=== PATIENT | female | born 1945 | race Caucasian/White ===

== ENCOUNTER 2017-03-30 15:53 | Inpatient (IN) | payer BC, OTHER ==
[~2017-03-30] VITALS: Ht 152.4 cm; Wt 78.0 kg
[~2017-03-30 15:53] MED LIST: ASPCH81 PO; CHOL100010 PO; CLC100X PO; CLTP PO; CO Q10 PO; DHEA PO; DULO60CA44 PO; GARC1TAB PO; GINSING PO; OMEG10007 PO; PRN10125 PO; ROPI2TAB6 PO; SYN200 PO; TRAZ100T29 PO; VITAMIN B PLUS PO; VITAMIN C PO; WELLBUTRIN PO; [UNRECOGNIZED DRUG - CODE] TOP; [UNRECOGNIZED DRUG - OTHER] PO; [UNRECOGNIZED DRUG - OTHER] PO; garlic PO; tumeric PO
[2017-03-30] MEDS ORDERED: SODIUM CHLORIDE 0.9% 1000ML 1,000 ML IV SCH ×2 (16:08→21:15)
--- NOTE | 2017-03-30 16:24 | DIAGNOSTIC IMAGING REPORT ---
CT OF THE HEAD WITHOUT CONTRAST CLINICAL HISTORY: Stroke alert. Left-sided numbness and weakness. COMPARISON STUDY: MRI of the brain October 08, 2014. CT DOSE: 614.27 mGy.cm TECHNIQUE: Helical axial images of the head were obtained without IV contrast. Automated exposure control was utilized for the study. FINDINGS: No acute intracranial hemorrhage, midline shift or mass effect is present. Ventricular system is normal. Basilar cisterns are patent. There are no extra-axial collections. Mild white matter hypodensity suggests small vessel disease. There are no findings to suggest acute dural sinus thrombosis or acute territorial infarct. Visualized portions of the sinuses and mastoid air cells are clear. There are no calvarial abnormalities. IMPRESSION: No acute intracranial findings. Electronically signed by: Daniel Jessica M.D. 03/30/2017 4:23 PM Dictated Date/Time: 03/30/2017 4:19 PM
--- NOTE | 2017-03-30 16:34 | DIAGNOSTIC IMAGING REPORT ---
CHEST ONE VIEW PORTABLE HISTORY: Stroke symptoms. COMPARISON: Chest 02/10/2014. FINDINGS: The heart remains borderline enlarged. No focal lung consolidations. Question of a small nodular density within the right midlung zone. No pleural effusions. No pneumothorax. Cervical spinal fusion hardware. IMPRESSION: 1. No acute process within the chest. 2. Question small nodular density within the right midlung zone is likely due to the overlapping pulmonary vessels and ribs. However, dedicated nonemergent PA and lateral views the chest are recommended for confirmation. Electronically signed by: Ad Dillard M.D. 03/30/2017 4:33 PM Dictated Date/Time: 03/30/2017 4:32 PM
[2017-03-30 16:48] LABS: BASO % 0.3 %; BASO ABS # 0.02 K/uL (0-0.2); COMPLETE YES; EOS % 0.8 %; HEMATOCRIT 37.7 % (37-47); IG% 0.3 %; LYMPH % 27.9 %; LYMPH ABS # 1.75 K/uL (1.2-3.4); MEAN CELL VOLUME 88.1 fL (80-100); MEAN CORPUSCULAR HEMOGLOBIN 30.8 pg (25-34); MEAN PLATELET VOLUME 9.1 fL (7.4-10.4); MONO % 7.8 %; NEUT % 62.9 %; PLATELET COUNT 239 K/uL (130-400); RED BLOOD COUNT 4.28 M/uL (4.2-5.4); WHITE BLOOD COUNT 6.27 K/uL (4.8-10.8)
[2017-03-30 16:57] LABS: INR 0.9 (0.9-1.1)
[2017-03-30 17:05] LABS: BLOOD UREA NITROGEN 15 mg/dl (7-18); BUN/CREATININE RATIO 23.1 (10-20); CALCIUM 9.2 mg/dl (8.5-10.1); CARBON DIOXIDE 30 mmol/L (21-32); CHLORIDE 104 mmol/L (98-107); CREATININE 0.65 mg/dl (0.60-1.20); GLUCOSE 93 mg/dl (70-99); POTASSIUM 3.9 mmol/L (3.5-5.1); SODIUM 140 mmol/L (136-145)
[2017-03-30 17:09] LABS: CKMB/CK RATIO 1.4 (0-3.0)
[2017-03-30] MEDS ORDERED: MISCTAB26 PO (17:42)
[2017-03-30] MEDS ORDERED: MILK140C PO (17:42)
[2017-03-30] MEDS ORDERED: OXYC-106 PO (17:42)
[2017-03-30] MEDS ORDERED: TUMERIC PO (17:42)
[2017-03-30] MEDS ORDERED: LSN/10125 PO (17:42)
[2017-03-30] MEDS ORDERED: LEVO200T6 PO (17:42)
[2017-03-30] MEDS ORDERED: ASPI-435 PO (17:42)
[2017-03-30] MEDS ORDERED: MONT1TAB3 PO (17:42)
[2017-03-30] MEDS ORDERED: CALCTAB7 PO (17:42)
[2017-03-30] MEDS ORDERED: BUPRTAB51 PO (17:42)
[2017-03-30] MEDS ORDERED: CHOL100041 PO (17:42)
[2017-03-30] MEDS ORDERED: DOCU100C31 PO (17:42)
[2017-03-30] MEDS ORDERED: GARL10007 PO (17:42)
[2017-03-30] MEDS ORDERED: COEN90TA PO (17:42)
[2017-03-30] MEDS ORDERED: B-CO1CAP17 PO (17:42)
[2017-03-30] MEDS ORDERED: ASCA500 PO (17:42)
[2017-03-30] MEDS ORDERED: PHARMACIST DISCHARGE MED REC CONSULT PRN (18:45)
[2017-03-30] MEDS ORDERED: OXYCODONE/ACETAMINOPHEN 10/325MG TAB PO PRN (19:15)
[2017-03-30] MEDS ORDERED: DOCUSATE SODIUM 100 MG CAP PO PRN (19:15)
--- NOTE | 2017-03-30 19:46 | EMERGENCY ROOM VISIT NOTE ---
History Report prepared by Liya: Bree Wright Under the Supervision of: Dr. Adriel Fair M.D. First contact with patient: 16:00 Chief Complaint: STROKE SYMPTOMS Stated Complaint: POSSIBLE STROKE History of Present Illness The patient is a 72 year old female who presents to the Emergency Room with complaints of persistent speech difficulties starting at 1500 today (1 hour ago) . She reports suddenly being unable to find her words. She is able to understand other's speech without difficulty. She denies any speech slurring. Her does not notice any slurring of her speech. She reports feeling hot and shaky in her left side. She reports left arm weakness and difficulty swallowing. She denies any vision changes, fever, or headache. She had a kyphoplasty last week in [place]. She states she generally has some mild weakness in her legs from her back issues which is unchanged. She has a history of fibromyalgia and hypertension. She denies any history of stroke or diabetes. She did take an aspirin today. Source of History: patient, spouse/significant other Onset: 1500 today (1 hour ago) Position: other (global) Quality: other (stroke symptoms) Timing: other (persistent) Modifying Factors (Relieving): other (none) Associated Symptoms: + weakness (left arm), No fevers, No headache Note: Pt reports difficulty swallowing, feeling hot and shaky on her left side. Pt denies speech slurring, vision changes. Review of Systems See HPI for pertinent positives & negatives. A total of 10 systems reviewed and were otherwise negative. Past Medical & Surgical Medical Problems: (1) Depression (2) Fibromyalgia (3) Hypertension (4) Stroke-like symptoms Family History No pertinent family history stated. Social History Smoking Status: Never Smoker Marital Status: Occupation Status: employed Current/Historical Medications Scheduled Ascorbic Acid (Vitamin C), Unknown Dose PO QAM Aspirin (Aspirin 81), 81 MG PO HS Bupropion (Wellbutrin-Xl), 300 MG PO QAM Calcium Carbonate-Vitamin D W/ (Caltrate 600 Plus), 1 TAB PO QAM Cholecalciferol (D 1000), 1,000 UNITS PO QAM Coenzyme Q10 (Ubidecarenone) (Co Q10), Unknown Dose PO QAM Duloxetine Hcl (Cymbalta), 60 MG PO QAM Fish Oil ([place]amo-3), 1 CAP PO TID Garlic (Garlic), 1,000 MG PO QAM Hctz/Lisinopril (Lisinopril/Hctz 10/12.5 Mg), 1 TAB PO QAM Hormone Cream Base (Hrt Base), 1 DOSE TOP QAM Levothyroxine Sodium (Levothyroxine Sodium), 200 MCG PO QAM Milk Thistle (Silybum [place] (Milk Thistle), Unknown Dose PO QAM Misc Natural Products (Ginkgo Biloba), Unknown Dose PO QAM Montelukast Sodium (Singulair), 10 MG PO QAM Ropinirole (Requip), 2 MG PO BID Trazodone Hcl (Trazodone), 200 MG PO HS Vitamin B Cmplx/Vitc/Folic Ac (Nephrocaps), 1 CAP PO QAM [Tumeric], Unknown Dose PO QAM Scheduled PRN Docusate Sodium (Docusate Sodium), 1 CAP PO QAM PRN for Constipation Oxycodone/Acetaminophen 10MG/325MG (Percocet 10MG/325MG), 1 TAB PO TID PRN for Pain Allergies Coded Allergies: Penicillins (Verified Allergy, Intermediate, RASH, 03/30/17) Zolpidem (Verified Allergy, Unknown, WALKS AROUND AT NIGHT-DISORIENTATION, SWELLING AROUND FACE, 03/30/17) Physical Exam Vital Signs Date Time Temp Pulse Resp B/P Pulse Ox O2 Delivery O2 Flow Rate FiO2 03/30/17 18:45 80 20 109/86 03/30/17 17:21 78 16 109/86 95 Room Air 03/30/17 16:54 75 03/30/17 16:45 Room Air 03/30/17 16:40 76 20 134/83 95 Room Air 03/30/17 15:56 37.3 76 18 157/86 96 Room Air Physical Exam Constitutional: Vital signs reviewed. Eyes: Pupils are equal round reactive to light. Conjunctiva are noninjected. ENT: Pharynx is clear without erythema or exudate. Mucous membranes are moist. Neck supple without meningeal signs. Respiratory: Clear to auscultation bilaterally. Breath sounds are equal bilaterally. Cardiovascular: Regular rate and rhythm. No rubs or gallops. GI: Soft, nondistended and nontender. Bowel sounds are present. Musculoskeletal: No peripheral edema. No lower extremity tenderness. Integumentary: No cyanosis. 2 sutures just right of the upper lumbar spine, no signs of infection. No bleeding. Neurological: The patient is awake and alert. Cranial nerves II-XII are intact. Very minimal difference in strength in left arm compared to right arm. Sensation is intact to light touch all extremities. Normal speech although she has some hesitancy in her speech. No pronator drift. No limb ataxia. Psychiatric: Normal affect. Medical Decision & Procedures ER Provider Diagnostic Interpretation: X-ray results as stated below per interpretation by me and the radiologist. Radiology results as stated below per my review and the radiologist's interpretation: CHEST ONE VIEW PORTABLE HISTORY: Stroke symptoms. COMPARISON: Chest 02/10/2014. FINDINGS: The heart remains borderline enlarged. No focal lung consolidations. Question of a small nodular density within the right midlung zone. No pleural effusions. No pneumothorax. Cervical spinal fusion hardware. IMPRESSION: 1. No acute process within the chest. 2. Question small nodular density within the right midlung zone is likely due to the overlapping pulmonary vessels and ribs. However, dedicated nonemergent PA and lateral views the chest are recommended for confirmation. Electronically signed by: Ad Dillard M.D. 03/30/2017 4:33 PM Dictated Date/Time: 03/30/2017 4:[address] OF THE HEAD WITHOUT CONTRAST CLINICAL HISTORY: Stroke alert. Left-sided numbness and weakness. COMPARISON STUDY: MRI of the brain October 08, 2014. CT DOSE: 614.27 mGy.cm TECHNIQUE: Helical axial images of the head were obtained without IV contrast. Automated exposure control was utilized for the study. FINDINGS: No acute intracranial hemorrhage, midline shift or mass effect is present. Ventricular system is normal. Basilar cisterns are patent. There are no extra-axial collections. Mild white matter hypodensity suggests small vessel disease. There are no findings to suggest acute dural sinus thrombosis or acute territorial infarct. Visualized portions of the sinuses and mastoid air cells are clear. There are no calvarial abnormalities. IMPRESSION: No acute intracranial findings. Electronically signed by: Daniel Jessica M.D. 03/30/2017 4:23 PM Dictated Date/Time: 03/30/2017 4:19 PM Laboratory Results 03/30/17 16:39 Red Blood Count 4.28, Mean Corpuscular Volume 88.1, Mean Corpuscular Hemoglobin 30.8, Mean Corpuscular Hemoglobin Concent 35.0, Mean Platelet Volume 9.1, Neutrophils (%) (Auto) 62.9, Lymphocytes (%) (Auto) 27.9, Monocytes (%) (Auto) 7.8, Eosinophils (%) (Auto) 0.8, Basophils (%) (Auto) 0.3, Neutrophils # (Auto) 3.94, Lymphocytes # (Auto) 1.75, Monocytes # (Auto) 0.49, Eosinophils # (Auto) 0.05, Basophils # (Auto) 0.02 03/30/17 16:39 Test 03/30/17 16:27 03/30/17 16:29 03/30/17 16:39 Bedside Prothrombin Time INR 0.9 (0.9-1.1) Bedside Glucose 93 mg/dl (70-90) White Blood Count 6.27 K/uL (4.8-10.8) Red Blood Count 4.28 M/uL (4.2-5.4) Hemoglobin 13.2 g/dL (12.0-16.0) Hematocrit 37.7 % (37-47) Mean Corpuscular Volume 88.1 fL (80-100) Mean Corpuscular Hemoglobin 30.8 pg (25-34) Mean Corpuscular Hemoglobin Concent 35.0 g/dl (32-36) Platelet Count 239 K/uL (130-400) Mean Platelet Volume 9.1 fL (7.4-10.4) Neutrophils (%) (Auto) 62.9 % Lymphocytes (%) (Auto) 27.9 % Monocytes (%) (Auto) 7.8 % Eosinophils (%) (Auto) 0.8 % Basophils (%) (Auto) 0.3 % Neutrophils # (Auto) 3.94 K/uL (1.4-6.5) Lymphocytes # (Auto) 1.75 K/uL (1.2-3.4) Monocytes # (Auto) 0.49 K/uL (0.11-0.59) Eosinophils # (Auto) 0.05 K/uL (0-0.5) Basophils # (Auto) 0.02 K/uL (0-0.2) RDW Standard Deviation 38.5 fL (36.4-46.3) RDW Coefficient of Variation 12.0 % (11.5-14.5) Immature Granulocyte % (Auto) 0.3 % Immature Granulocyte # (Auto) 0.02 K/uL (0.00-0.02) Prothrombin Time 10.0 SECONDS (9.0-12.0) Prothromb Time International Ratio 0.9 (0.9-1.1) Activated Partial Thromboplast Time 25.0 SECONDS (21.0-31.0) Partial Thromboplastin Ratio 1.0 Anion Gap 6.0 mmol/L (3-11) Est Creatinine Clear Calc Drug Dose 72.3 ml/min Estimated GFR () 102.8 Estimated GFR (Non- 88.7 BUN/Creatinine Ratio 23.1 (10-20) Calcium Level 9.2 mg/dl (8.5-10.1) Total Creatine Kinase 79 U/L (26-192) Creatine Kinase MB 1.1 ng/ml (0.5-3.6) Creatine Kinase MB Ratio 1.4 (0-3.0) Troponin I < 0.015 ng/ml (0-0.045) Laboratory results as reviewed by me. Medications Administered Medications (Trade) Dose Ordered Sig/[place]anda Route Start Time Stop Time Status Last Admin Dose Admin Sodium Chloride (Nss 1000ml) 1,000 ml @ 50 mls/hr Q20H IV 03/30/17 16:08 04/29/17 16:07 03/30/17 16:08 50 MLS/HR ECG Indication: other (stroke) Rate (beats per minute): 78 Rhythm: normal sinus Findings: no acute ischemic change, no ectopy ED Course 1601: The patient was evaluated in room C4. A complete history and physical exam was performed. 1608: NSS 1000 ml @ 50 mls/hr IV. 1621: I spoke with Dr. Jessica, [facility] - radiology. The patient's head CT is negative. 1634: I discussed the patient's case with Dr. Breen, [facility] - neurology. He will evaluate the patient. 1642: Istat showed potassium greater than 9 with normal creatinine. Given unremarkable EKG, blood work will be repeated for possible hemolysis. Dr. Breen is evaluating the patient at this time. 1701: Dr. Breen has evaluated the patient. Blood has not yet been drawn for the repeat potassium. 1708: The potassium from the lab was 3.9, therefore no repeat blood work will be drawn. 1712: I discussed with Dr. Breen. He recommends Klonopin and admission for MRI. Patient reports she has already had aspirin today. He states the patient is not a tPA candidate. 1728: I discussed the patient's case with Dr. Grant, [facility] hospitalist. He will evaluate the patient for further management. 1732: I reevaluated the patient. I updated her on the results and treatment plan. I discussed with her Dr. Breen's recommendations. She verbalized understanding and agreement. She will be evaluated for further management. Medical Decision This is a 72-year-old female who presents with stroke symptoms. Differential diagnosis includes intracranial hemorrhage, intracranial mass, TIA, CVA, anxiety , metabolic derangement. I did perform a limited focused review of portions of the patient's old chart on the electronic medical record. The patient has had no recent pertinent visits to this hospital. I did evaluate the patient as noted above. I did call a stroke alert. She is having hesitancy in her speech as well as difficulty swallowing and left arm weakness. She says that she has to force herself to swallow but is able to. Objectively she has minimal deficits. IV access was established. The patient was placed on a continuous cushion filler. I did order a CT of the head. I did review the images myself as well as the radiology report as described above. There is no evidence of acute process. I did order and personally review the patient's 12-lead EKG and chest x-ray as described above. I did order and review the patient's blood work as noted in the electronic medical record. I-STAT labs showed a potassium of 9 but this is inconsistent with her clinical history as well as EKG. Lab potassium was 3.9. I do not believe the patient is a TPA candidate as she has very mild symptoms and she also had kyphoplasty last week. I did have the [place] neurologist evaluate the patient via telemedicine. He agreed that she did not meet TPA criteria. He recommended admission to the hospital for MRI and recommended Klonopin for anxiety. I did discuss the test results with the patient and explained to them why we were not giving TPA. I also discussed the recommendations. I did discuss the case with the hospitalist and porter sample case. Consults Time Called: 1618 Consulting Physician: Dr. Jessica, [facility] - radiology Returned Call: 1621 I spoke with him. The patient's head CT is negative. Additional Consults: Time Called: 1629 Consulted Physician: Dr. Breen, [facility] - neurology Returned Call: 1634 Additional Comments: I discussed the patient's case with him. He will evaluate the patient. Time Called: 1726 Consulted Physician: Dr. Grant [facility] hospitalist Returned Call: 1728 Additional Comments: I discussed the patient's case with him. He will evaluate the patient for further management. Impression Primary Impression: Acute CVA (cerebrovascular accident) Additional Impression: Anxiety Scribe Attestation The scribe's documentation has been prepared under my direct and personally reviewed by me in its entirety. I confirm that the note above accurately reflects all work, treatment, procedures, and medical decision making performed by me. Departure Information Dispostion Being Evaluated By Hospitalist Referrals No Doctor, Assigned (PCP) Patient Instructions My [facility] Problem Qualifiers
--- NOTE | 2017-03-30 20:39 | DIAGNOSTIC IMAGING REPORT ---
Brain MRI WITH AND WITHOUT CONTRAST HISTORY: Memory loss. Difficulty speaking. Stroke TECHNIQUE: Multiplanar multisequence MRI of the brain was performed both before and after the intravenous administration of contrast. COMPARISON STUDY: Brain MRI 10/08/2014. Head CT 03/30/2017. FINDINGS: There are no areas of restricted diffusion to suggest acute infarction. The midline structures are intact. The paranasal sinuses are clear. The mastoid air cells are clear. The ventricles and sulci are within normal limits for age. There is no mass, hematoma, midline shift. The major vascular flow-voids at the skull base are well maintained. Postcontrast sequences show no areas of abnormal enhancement. Minimal periventricular white matter T2 hyperintensity is nonspecific but suggestive of microvascular ischemic change. This remains unchanged. IMPRESSION: No significant change compared to the prior study. No acute intracranial abnormality. Electronically signed by: Ad Dillard M.D. 03/30/2017 8:37 PM Dictated Date/Time: 03/30/2017 8:31 PM
--- NOTE | 2017-03-30 20:41 | DIAGNOSTIC IMAGING REPORT ---
Brain MRA HISTORY: r/o stroke TECHNIQUE: 3-D [id number] MRA of the brain was performed without contrast. COMPARISON STUDY: None. FINDINGS: Visualized intracranial internal carotid arteries, distal vertebral arteries, and basilar artery are widely patent. 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 Hypoplastic distal left vertebral artery and right P1 segment. IMPRESSION: No significant stenosis, occlusion, or aneurysm within the [place]. Electronically signed by: Ad Dillard M.D. 03/30/2017 8:40 PM Dictated Date/Time: 03/30/2017 8:38 PM
--- NOTE | 2017-03-30 20:55 | DIAGNOSTIC IMAGING REPORT ---
BILATERAL CAROTID DOPPLER STUDY HISTORY: Memory loss. stroke like symptoms COMPARISON: None. TECHNIQUE: Real-time, grayscale, and color Doppler sonography of the carotid arteries was performed. Imaging reviewed in the transverse and longitudinal planes. All measurements were calculated based on NASCET criteria. FINDINGS: Antegrade flow is seen in the bilateral vertebral arteries. The brachial pressures are hemodynamically similar. The peak systolic velocity within the right ICA is 60 cm/s. The right systolic ratio is 0.7. The peak systolic velocity within the left ICA is 66 cm/s. The left systolic ratio is 0.6. IMPRESSION: No hemodynamically significant stenosis seen within the carotid arteries. Electronically signed by: Ad Dillard M.D. 03/30/2017 8:54 PM Dictated Date/Time: 03/30/2017 8:53 PM
--- NOTE | 2017-03-30 20:58 | History and Physical ---
History & Physical Date & Time of Service: March 30, 2017 at 19:15 Chief Complaint: Possible Stroke Primary Care Physician: No Doctor, Assigned History of Present Illness Source: patient, family, spouse, hospital records 72 year old female with PMH of dyslipidemia, HTN, Fibromyalgia, thyroid malignancy presents to the Emergency Room with complaints speech difficulty. Pt is from [place] and came for vacation. Pt said that around 3 pm today she suddenly feels hot and pressure around the left side of her jaw. She said that she felt her left sided of her body feels weak. she started to unable to find her words. She said that she was able to comprehend. she did not have any slurred speech. she said that for about a month she has been having tremors all over her extremities, but today the shakiness got worst. Her did not notice any slurring of her speech or facial droop. She denies any vision changes , chest pain, dysuria, unsteady gait, dizziness, fever, or headache. She had a kyphoplasty done last week in [place]. Past Medical/Surgical History Medical Problems: (1) Depression Status: Chronic (2) Fibromyalgia Status: Chronic (3) Hypertension Status: Chronic Social History Smoking Status: Never Smoker Alcohol Use: none Drug Use: none Marital Status: Immunizations History of Influenza Vaccine: Yes Influenza Vaccine Date: Aug 31, 2007 History of Tetanus Vaccine?: up to date History of Pneumococcal: Yes History of Hepatitis B Vaccine: Unknown Multi-Drug Resistant Organisms History of MDRO: No Allergies Coded Allergies: Penicillins (Verified Allergy, Intermediate, RASH, 03/30/17) Zolpidem (Verified Allergy, Unknown, WALKS AROUND AT NIGHT-DISORIENTATION, SWELLING AROUND FACE, 03/30/17) Home Medications Scheduled Ascorbic Acid (Vitamin C), Unknown Dose PO QAM Aspirin (Aspirin 81), 81 MG PO HS Bupropion (Wellbutrin-Xl), 300 MG PO QAM Calcium Carbonate-Vitamin D W/ (Caltrate 600 Plus), 1 TAB PO QAM Cholecalciferol (D 1000), 1,000 UNITS PO QAM Coenzyme Q10 (Ubidecarenone) (Co Q10), Unknown Dose PO QAM Duloxetine Hcl (Cymbalta), 60 MG PO QAM Fish Oil ([place]-3), 1 CAP PO TID Garlic (Garlic), 1,000 MG PO QAM Hctz/Lisinopril (Lisinopril/Hctz 10/12.5 Mg), 1 TAB PO QAM Hormone Cream Base (Hrt Base), 1 DOSE TOP QAM Levothyroxine Sodium (Levothyroxine Sodium), 200 MCG PO QAM Milk Thistle (Silybum Marianum (Milk Thistle), Unknown Dose PO QAM Misc Natural Products (Ginkgo Biloba), Unknown Dose PO QAM Montelukast Sodium (Singulair), 10 MG PO QAM Ropinirole (Requip), 2 MG PO BID Trazodone Hcl (Trazodone), 200 MG PO HS Vitamin B Cmplx/Vitc/Folic Ac (Nephrocaps), 1 CAP PO QAM [Tumeric], Unknown Dose PO QAM Scheduled PRN Docusate Sodium (Docusate Sodium), 1 CAP PO QAM PRN for Constipation Oxycodone/Acetaminophen 10MG/325MG (Percocet 10MG/325MG), 1 TAB PO TID PRN for Pain Review of Systems Constitutional: No chills, No fever Eyes: No diplopia, No worsening of vision ENT: No hearing loss, No nasal symptoms, No sore throat Respiratory: No cough, No shortness of breath, No sputum, No wheezing Cardiovascular: No chest pain, No claudication, No orthopnea Abdomen: No nausea, No pain, No vomiting Musculoskeletal: + joint pain, No calf pain Genitourinary - Female: No dysuria, No urinary frequency Neurologic: + problem reported (difficulty to find words, tremors), + weakness (left sided) Psychiatric: + anxiety, No substance abuse Endocrine: No excessive thirst, No fatigue Hematologic / Lymphatic: No clotting problems, No night sweats Integumentary: No itch, No rash Physical Exam Vital Signs Date Time Temp Pulse Resp B/P Pulse Ox O2 Delivery O2 Flow Rate FiO2 03/30/17 18:45 80 20 109/86 03/30/17 17:21 78 16 109/86 95 Room Air 03/30/17 16:54 75 03/30/17 16:45 Room Air 03/30/17 16:40 76 20 134/83 95 Room Air 03/30/17 15:56 37.3 76 18 157/86 96 Room Air General Appearance: WD/WN, no apparent distress Head: normocephalic, atraumatic Eyes: normal inspection, PERRL, EOMI ENT: normal ENT inspection, hearing grossly normal Neck: supple, no JVD Respiratory/Chest: lungs clear, normal breath sounds, no respiratory distress, no accessory muscle use Cardiovascular: regular rate, rhythm, no edema, no JVD, no murmur Abdomen/GI: normal bowel sounds, non tender, soft Back: no CVA tenderness, + pertinent finding (2 stitches present from the kyphoplasty) Extremities/Musculoskelatal: no calf tenderness 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, no motor/sensory deficits, alert, oriented x 3 Skin: normal color, warm/dry, no rash Diagnostics Laboratory Results Results Past 24 Hours Test 03/30/17 16:27 03/30/17 16:29 03/30/17 16:39 Range/Units Bedside Prothrombin Time INR 0.9 0.9-1.1 Bedside Glucose 93 70-90 mg/dl White Blood Count 6.27 4.8-10.8 K/uL Red Blood Count 4.28 4.2-5.4 M/uL Hemoglobin 13.2 12.0-16.0 g/dL Hematocrit 37.7 37-47 % Mean Corpuscular Volume 88.1 80-100 fL Mean Corpuscular Hemoglobin 30.8 25-34 pg Mean Corpuscular Hemoglobin Concent 35.0 32-36 g/dl Platelet Count 239 130-400 K/uL Mean Platelet Volume 9.1 7.4-10.4 fL Neutrophils (%) (Auto) 62.9 % Lymphocytes (%) (Auto) 27.9 % Monocytes (%) (Auto) 7.8 % Eosinophils (%) (Auto) 0.8 % Basophils (%) (Auto) 0.3 % Neutrophils # (Auto) 3.94 1.4-6.5 K/uL Lymphocytes # (Auto) 1.75 1.2-3.4 K/uL Monocytes # (Auto) 0.49 0.11-0.59 K/uL Eosinophils # (Auto) 0.05 0-0.5 K/uL Basophils # (Auto) 0.02 0-0.2 K/uL RDW Standard Deviation 38.5 36.4-46.3 fL RDW Coefficient of Variation 12.0 11.5-14.5 % Immature Granulocyte % (Auto) 0.3 % Immature Granulocyte # (Auto) 0.02 0.00-0.02 K/uL Prothrombin Time 10.0 9.0-12.0 SECONDS Prothromb Time International Ratio 0.9 0.9-1.1 Activated Partial Thromboplast Time 25.0 21.0-31.0 SECONDS Partial Thromboplastin Ratio 1.0 Sodium Level 140 136-145 mmol/L Potassium Level 3.9 3.5-5.1 mmol/L Chloride Level 104 98-107 mmol/L Carbon Dioxide Level 30 21-32 mmol/L Anion Gap 6.0 3-11 mmol/L Blood Urea Nitrogen 15 7-18 mg/dl Creatinine 0.65 0.60-1.20 mg/dl Est Creatinine Clear Calc Drug Dose 72.3 ml/min Estimated GFR () 102.8 Estimated GFR (Non- 88.7 BUN/Creatinine Ratio 23.1 10-20 Random Glucose 93 70-99 mg/dl Calcium Level 9.2 8.5-10.1 mg/dl Total Creatine Kinase 79 26-192 U/L Creatine Kinase MB 1.1 0.5-3.6 ng/ml Creatine Kinase MB Ratio 1.4 0-3.0 Troponin I < 0.015 0-0.045 ng/ml Diagnostic Radiology CT OF THE HEAD WITHOUT CONTRAST CLINICAL HISTORY: Stroke alert. Left-sided numbness and weakness. COMPARISON STUDY: MRI of the brain October 08, 2014. CT DOSE: 614.27 mGy.cm TECHNIQUE: Helical axial images of the head were obtained without IV contrast. Automated exposure control was utilized for the study. FINDINGS: No acute intracranial hemorrhage, midline shift or mass effect is present. Ventricular system is normal. Basilar cisterns are patent. There are no extra-axial collections. Mild white matter hypodensity suggests small vessel disease. There are no findings to suggest acute dural sinus thrombosis or acute territorial infarct. Visualized portions of the sinuses and mastoid air cells are clear. There are no calvarial abnormalities. IMPRESSION: No acute intracranial findings. Electronically signed by: Daniel Jessica M.D. 03/30/2017 4:23 PM Dictated Date/Time: 03/30/2017 4:19 PM CHEST ONE VIEW PORTABLE HISTORY: Stroke symptoms. COMPARISON: Chest 02/10/2014. FINDINGS: The heart remains borderline enlarged. No focal lung consolidations. Question of a small nodular density within the right midlung zone. No pleural effusions. No pneumothorax. Cervical spinal fusion hardware. IMPRESSION: 1. No acute process within the chest. 2. Question small nodular density within the right midlung zone is likely due to the overlapping pulmonary vessels and ribs. However, dedicated nonemergent PA and lateral views the chest are recommended for confirmation. Electronically signed by: Ad Dillard M.D. 03/30/2017 4:33 PM Impression Assessment and Plan Stroke like symptoms Present with aphasia and left sided weakness and hot stroke alert was called, but no TPA was given because pt did not meet the criteria for TPA CT head was done was negative for any intracranial abnormality EKG showed normal sinus rhythm Will check MRI/MRA of the head carotid doppler of the neck Continue aspirin Check Echo, Troponin, Lipid hawk, TSH, B12, Folate in am neuro check swallow eval, speech eval will consult neurology PT/OT eval Hypothyroidism Check TSH continue levothyroxine ?Right lung nodular Cxr showed Question small nodular density within the right midlung zone. Will get a PA/LA cxr. HTN Hold BP med for now since BP in the low side will do gentle hydration Fibromyalgia Back pain had a kyphoplasty done last week in [place] will removed stitches tomorrow Continue cymbalta, oxycodone Dyslipidemia Check lipid panel Tremors Possible related to anxiety Neuro on board DVT px on heparin subq CODE STATUS FULL CODE as per discussion with pt, no prolong mech ventilation Level of Care Telemetry Resuscitation Status FULL RESUSCITATION VTE Prophylaxis VTE Risk Assessment Done? Y/N: Yes Risk Level: Moderate Given or contraindicated: Unfractionated heparin SQ
[2017-03-30] MEDS ORDERED: ASPIRIN 81 MG ECTAB PO SCH (21:00)
[2017-03-30] MEDS ORDERED: TRAZODONE HCL 100 MG TAB PO SCH (21:00)
[2017-03-30 21:15] VITALS: BP 152/76; PULSE 77; TEMP 36.9; O2SAT 95
[2017-03-30 21:54] VITALS: BP 152/76; PULSE 77; TEMP 36.9; O2SAT 95; Ht 152.4 cm; Wt 78.0 kg
[2017-03-30] MEDS: ROPINIROLE HCL 1 MG TAB PO SCH (22:32)
[2017-03-30] MEDS: HEPARIN SOD 5000 UNIT/0.5 ML CARP SQ SCH (22:34)
[2017-03-30 23:13] VITALS: BP 124/72; PULSE 74; TEMP 37; O2SAT 92
[2017-03-30 23:59] VITALS: O2SAT 92
[2017-03-31 03:18] VITALS: BP 116/68; PULSE 70; TEMP 36.5; O2SAT 94
[2017-03-31 04:00] VITALS: O2SAT 92
[2017-03-31 05:23] LABS: BENZODIAZEPINE, URINE NEG (NEG); COCAINE,URINE NEG (NEG); PHENCYCLIDINE, URINE NEG (NEG)
[2017-03-31] MEDS: HEPARIN SOD 5000 UNIT/0.5 ML CARP SQ SCH (05:58)
[2017-03-31] MEDS ORDERED: LEVOTHYROXINE 200 MCG TAB PO SCH (06:00)
[2017-03-31 07:12] LABS: ESTIMATED AVERAGE GLUCOSE 108 mg/dl; HA1C FLAG Normal (Normal)
[2017-03-31 07:46] VITALS: BP 138/76; PULSE 61; TEMP 36.9; O2SAT 95
[2017-03-31] MEDS: ROPINIROLE HCL 1 MG TAB PO SCH (08:39)
[2017-03-31 08:50] LABS: HEMATOCRIT 38.1 % (37-47); MEAN CELL VOLUME 88.8 fL (80-100); MEAN CORPUSCULAR HEMOGLOBIN 29.8 pg (25-34); MEAN CORPUSCULAR HGB CONC 33.6 g/dl (32-36); MEAN PLATELET VOLUME 9.2 fL (7.4-10.4); PLATELET COUNT 213 K/uL (130-400); RED BLOOD COUNT 4.29 M/uL (4.2-5.4); WHITE BLOOD COUNT 3.66 K/uL (4.8-10.8)
[2017-03-31] MEDS ORDERED: NEPHROCAPS PO SCH (09:00)
[2017-03-31] MEDS ORDERED: CALCIUM 600MG + VIT D 400 IU TAB PO SCH (09:00)
[2017-03-31] MEDS ORDERED: LISINOPRIL/HCTZ 10/12.5MG TAB PO SCH (09:00)
[2017-03-31] MEDS ORDERED: MONTELUKAST SOD 10 MG TAB PO SCH (09:00)
[2017-03-31] MEDS ORDERED: DULOXETINE HCL 60 MG CAP PO SCH (09:00)
[2017-03-31] MEDS ORDERED: NON-FORMULARY MEDICATION (Garlic 1,000 MG) PO SCH (09:00)
[2017-03-31] MEDS ORDERED: BuPROPion XL 300 MG TABCR PO SCH (09:00)
[2017-03-31] MEDS ORDERED: CHOLECALCIFEROL 1000 INTER.UNIT TAB PO SCH (09:00)
[2017-03-31 09:27] LABS: ESTIMATED AVERAGE GLUCOSE 105 mg/dl; HA1C FLAG Normal (Normal)
[2017-03-31 09:31] LABS: BLOOD UREA NITROGEN 13 mg/dl (7-18); BUN/CREATININE RATIO 21.4 (10-20); CARBON DIOXIDE 29 mmol/L (21-32); CHLORIDE 108 mmol/L (98-107); CREATININE 0.59 mg/dl (0.60-1.20); GLUCOSE 96 mg/dl (70-99); POTASSIUM 3.7 mmol/L (3.5-5.1); SODIUM 144 mmol/L (136-145)
[2017-03-31 09:41] LABS: CHOLESTEROL 162 mg/dl (0-200); CHOLESTEROL/HDL RATIO 3.6; HDL CHOLESTEROL 45 mg/dl; LDL CHOLESTEROL CALCULATED 82 mg/dl; THYROID STIMULATING HORMONE 0.116 uIu/ml (0.300-4.500); TRIGLYCERIDES 175 mg/dl (0-150); VERY LOW DENSITY LIPOPROT CALC 35 mg/dl
[2017-03-31 10:07] LABS: CALCIUM 9.1 mg/dl (8.5-10.1)
--- NOTE | 2017-03-31 10:34 | DIAGNOSTIC IMAGING REPORT ---
CHEST-PA,LAT AND OBLIQUE VIEWS HISTORY: Questionable right lung nodule. Follow-up. COMPARISON: Chest 03/30/2017. FINDINGS: Right midlung zone nodular density is no longer visualized and was likely due to the overlapping pulmonary vessels. The lungs are clear. The heart is normal in size. Cervical and lumbar spinal fusion hardware. No pleural effusions. No pneumothorax. Vertebroplasty seen within the L1 compression fracture. There is also mild compression deformity at T12 which is likely old. IMPRESSION: No acute process. Electronically signed by: Ad Dillard M.D. 03/31/2017 10:33 AM Dictated Date/Time: 03/31/2017 10:31 AM
[2017-03-31] MEDS ORDERED: NURSING VERBAL MED ORDER ONE (10:45)
[2017-03-31 12:04] VITALS: BP 134/79; PULSE 68; TEMP 36.9; O2SAT 96
--- NOTE | 2017-03-31 12:56 | NEUROLOGY CONSULTATION ---
DATE OF CONSULTATION: 03/31/2017 DATE OF CONSULTATION: 03/31/2017. HISTORY OF PRESENT ILLNESS: Edda is 72 years old, regularly resides in [place], is up here visiting grandchildren for several days and has a past history of dyslipidemia, hypertension, fibromyalgia, thyroid malignancy and now chronic back pain which is going apparently to be addressed surgically in the next several weeks. The pain has gotten to the point of severity where she is now on oxycodone 10 mg 3 times a day and has been on this for several weeks. She presented to the Emergency Room about 3:00 p.m. yesterday feeling hot, pressure on the left side of her head, felt that her speech was not quite right and she also had problems with the left arm. She has been having pain in the left shoulder and arm and in fact neck and upper arms since a fall back in the fall of 2015, but apparently has been evaluated and there has been no significant cervical spine issue or direct shoulder issue. How thorough the evaluation has been, however, is not known to me. She has had some shaking of her extremities which by history sounds like myoclonus and probably reflects effects of the oxycodone with narcotic-induced myoclonic episodes. Otherwise, she has had no symptoms. She has had no actual facial weakness, facial numbness, problems with hearing, tinnitus, vertigo, no numbness or tingling in her lower extremities other than that related to her chronic lower back issues and has had no bowel or bladder dysfunction. PAST MEDICAL HISTORY: Pretty much as outlined above. Other issues include chronic depression and hypertension. SOCIAL HISTORY: She is . She has never been a smoker. She does not consume ethanol. She is retired and lives in [place] and has grandchildren here. According to the chart her immunizations are up-to-date. There has been no evidence of antibiotic resistant organism. ALLERGIES: SHE HAS ALLERGIES TO PENICILLINS AND ZOLPIDEM. HOME MEDICINES: Include baby aspirin once a day, vitamin C, Wellbutrin 300 mg, calcium carbonate, cholecalciferol, Coenzyme Q10, Cymbalta, fish oil and garlic, hydrochlorothiazide/lisinopril, levothyroxine, milk thistle, miscellaneous natural products such as ginkgo biloba, Singulair, Requip 2 mg twice a day, trazodone, vitamin B and the oxycodone acetaminophen 10/325, which has only been on board for about 2 weeks according to her REVIEW OF SYSTEMS: Again, is pretty unremarkable, there has been no systemic issues. No new issues referable to head, eyes, ears, nose and throat, cardiovascular, pulmonary, gastrointestinal, genitourinary, musculoskeletal systems. FAMILY HISTORY: Noncontributory. PHYSICAL EXAMINATION: VITAL SIGNS: On exam, her blood pressure 109/86, pulse was 80 and regular, respirations were 20. GENERAL: She was moderately over nourished, otherwise appeared to be in no active distress. No dysarthria was noted. HEAD, EYES, EARS, NOSE, AND THROAT: Normal. LUNGS: Clear. HEART: Had a regular rhythm. EXTREMITIES: Free of edema and had good pulses. ABDOMEN: Was soft and nontender. NEUROLOGIC: Today neurologically she is awake, alert, oriented in 3 spheres. I do not see any tremor or myoclonus. There is no evidence for cranial neuropathies. Eye movements are normal. Visual ang are full. Ocular fundi are poorly seen. Facial motility and strength, facial sensation is normal. Speech is clear. Tongue protrudes in the midline. There is no nuchal rigidity. There is little tenderness over the left bicipital groove and biceps muscle which limits examination left arm and may produce a pseudo drift and pronation because of the inability of her to hold the arm in that position without pain. Otherwise, there is no tremor, tics, choreiform activity, significant drift, pronation or other abnormal involuntary movements. Reflexes are 1+ symmetrical. Toes are downgoing. No Elías's signs are seen. Strength is excellent allowing for the pain in the left shoulder with some secondary weakness of the biceps due to a limited effort and sensation intact to all primary modalities including vibration, light touch and temperature. Imaging studies have shown nothing on the MRI other than a few high T2 intensity signals of no significance. In light of her age and vascular risk factors, there is certainly no evidence for an acute stroke. MRAs have been normal. Duplex of the carotids are normal. Echo is pending. At this point, I have significant doubt that this was a vascular event. I am suspicious this was due to the accumulating effects of higher dose codeine. She describes what sounds like codeine induced myoclonus and also has been a little sleepy. I suspect that all we are dealing with was a transient drug related issue. She is certainly on a number of other pharmaceutical agents that could in conjunction with the codeine produce similar symptoms. We do not have evidence for stroke on imaging studies or clinically so at this point we certainly can eliminate that and I frankly doubt this is a TIA. At this point, then I would not add Plavix and steroid to her regimen. She should be followed up in [place]. Current medical records can be transferred to her primary care physician and reviewed by him prior to her anticipated back surgery, but currently I see no neurologic reason why she could not have anticipated surgery on her lumbar spine which seems to be a real pressing need at this time. I will check back with her tomorrow, but frankly unless we see anything else medically or the echo is abnormal she could probably be discharged on her regular medications. ARVIND
[2017-03-31] MEDS ORDERED: OXYCODONE/ACETAMINOPHEN 5-325 TAB PO PRN (13:00)
--- NOTE | 2017-03-31 13:25 | ECHOCARDIOGRAM REPORT ---
*NOTICE TO RECEIVING CONSTITUTION PARTY AGENCY This information is strictly Confidential and protected under [place] law. [place] law prohibits you from making any further disclosure of this information unless further disclosure is expressly permitted by the written consent of the person to whom it pertains or is authorized by law. A general authorization for the release of medical or other information is not sufficient for this purpose. Hospital accepts no responsibility if the information is made available to any other person, INCLUDING THE PATIENT. Interpretation Summary * Name: CANDELARIO BRYAN Study Date: 03/31/2017 07:27 AM BP: 138/76 mmHg * Patient Location: C.2T\S\S240\S\1 HR: 61 * : 1945 (M/d/yyyy) Gender: Female Height: 60 in * Age: 72 yrs Ethnicity: CA Weight: 171 lb * Ordering Physician: Anitha Lopez * Performed By: Carolina Montilla * * Reason For Study: STROKE LIKE SYMPTOMS * BSA: 1.7 m2 * -- Conclusions -- * The left ventricle is normal in size. * Left ventricular systolic function is normal. * Ejection Fraction = 65-70%. * The right ventricular systolic function is normal. * No significant valvular pathology. Procedure Details * A complete two-dimensional transthoracic echocardiogram was performed (2D, M-mode, Doppler and color flow Doppler). * A saline contrast injection was performed to assess for cardiac shunting. * The injection was performed through an intravenous line in the right arm. * The attending nurse who injected the saline contrast was TATIANA EDWARD RN. * A total of 20 cc of agitated saline was given. Left Ventricle * The left ventricle is normal in size. * There is normal left ventricular wall thickness. * Ejection Fraction = 65-70%. * Left ventricular systolic function is normal. Right Ventricle * The right ventricle is normal size. * The right ventricular systolic function is normal. Atria * The left atrial size is normal. * Right atrial size is normal. * The interatrial septum is intact with no evidence for an atrial septal defect. Mitral Valve * The mitral valve leaflets appear thickened, but open well. * Significant mitral regurgitation is absent. Tricuspid Valve * The tricuspid valve anatomy is normal. * Significant tricuspid regurgitation is absent. Aortic Valve * The aortic valve is tricuspid. The leaflet thickness if normal. There is no aortic stenosis, and no significant insufficiency. * Aortic stenosis is absent. * Trace aortic regurgitation. Pulmonic Valve * The pulmonic valve is not well visualized. Great Vessels * The aortic root and proximal ascending aorta are normal sized. Pericardium/Pleural * There is no pericardial effusion. MMode 2D Measurements and Calculations IVSd 1.4 cm IVSs 1.7 cm LVIDd 4.0 cm LVIDs 2.6 cm LVPWd 0.77 cm LVPWs 1.7 cm IVS/LVPW 1.9 FS 36.0 % EDV(Teich) 69.6 ml ESV(Teich) 23.6 ml EF(Teich) 66.2 % EDV(cubed) 63.6 ml ESV(cubed) 16.7 ml EF(cubed) 73.8 % % IVS thick 17.1 % % LVPW thick 119.0 % LV mass(C)d 146.5 grams LV mass(C)dI 83.9 grams/m\S\2 LV mass(C)s 160.6 grams LV mass(C)sI 91.9 grams/m\S\2 SV(Teich) 46.1 ml SI(Teich) 26.4 ml/m\S\2 SV(cubed) 46.9 ml SI(cubed) 26.9 ml/m\S\2 ACS 1.1 cm LA dimension 3.7 cm asc Aorta Diam 2.7 cm LVOT diam 1.8 cm LVOT area 2.4 cm\S\2 LVAd ap4 31.4 cm\S\2 LVLd ap4 8.2 cm EDV(MOD-sp4) 98.9 ml EDV(sp4-el) 101.9 ml LVAs ap4 15.3 cm\S\2 LVLs ap4 6.1 cm ESV(MOD-sp4) 32.5 ml ESV(sp4-el) 32.7 ml EF(MOD-sp4) 67.2 % EF(sp4-el) 67.9 % LVAd ap2 26.9 cm\S\2 LVLd ap2 7.5 cm EDV(MOD-sp2) 79.7 ml EDV(sp2-el) 82.1 ml LVAs ap2 14.8 cm\S\2 LVLs ap2 6.6 cm ESV(MOD-sp2) 27.5 ml ESV(sp2-el) 28.3 ml EF(MOD-sp2) 65.5 % EF(sp2-el) 65.6 % LVLd %diff -9.21 % EDV(MOD-bp) 93.0 ml LVLs %diff 7.5 % ESV(MOD-bp) 31.1 ml EF(MOD-bp) 66.6 % SV(MOD-sp4) 66.4 ml SI(MOD-sp4) 38.0 ml/m\S\2 SV(MOD-sp2) 52.2 ml SI(MOD-sp2) 29.9 ml/m\S\2 SV(MOD-bp) 61.9 ml SI(MOD-bp) 35.5 ml/m\S\2 SV(sp4-el) 69.1 ml SI(sp4-el) 39.6 ml/m\S\2 SV(sp2-el) 53.8 ml SI(sp2-el) 30.8 ml/m\S\2 Doppler Measurements and Calculations MV E max itz 119.7 cm/sec MV A max itz 100.3 cm/sec MV E/A 1.2 MV dec time 0.14 sec Ao V2 max 143.4 cm/sec Ao max PG 8.2 mmHg Ao max PG (full) 1.0 mmHg ARLENE(V,A) 2.3 cm\S\2 ARLENE(V,D) 2.3 cm\S\2 AI max itz 379.6 cm/sec AI max PG 57.7 mmHg AI dec slope 186.9 cm/sec\S\2 AI P1/2t 594.8 msec LV V1 max PG 7.2 mmHg LV V1 max 134.2 cm/sec PA V2 max 76.0 cm/sec PA max PG 2.3 mmHg TR max itz 294.3 cm/sec
--- NOTE | 2017-03-31 13:42 | Progress Note ---
Medicine Progress Note Date & Time of Visit: March 31, 2017 at 13:05. Subjective Pt was seen and examined Sitting in at the edge of the bed with no distress with at bedside Pt said that she is still having difficulty to find words and slow thought process she said that she feels tired Denies any chest pain, palpitation, dizziness and SOB Objective Last 8 Hrs Date Time Temp Pulse Resp B/P Pulse Ox O2 Delivery O2 Flow Rate FiO2 03/31/17 12:04 36.9 68 20 134/79 96 Room Air 03/31/17 12:00 Room Air 03/31/17 08:00 Room Air 03/31/17 07:46 36.9 61 17 138/76 95 Room Air Physical Exam: General- No acute distress Head- atraumatic Eyes- PERRL, EOMI, No nystagmus ENT- oropharynx clear Neck- supple, no JVD Lungs- clear to auscultation, no wheezing Heart- regular rhythm; no murmur, Abdomen- normal bowel sounds Extremities- no calf tenderness Neuro- alert, oriented x 3; PERRL, EOMI; no facial palsy; no dysarthria, +mild tremor Skin- warm & dry Laboratory Results: Last 24 Hours Test 03/30/17 16:27 03/30/17 16:29 03/30/17 16:39 03/30/17 22:30 Bedside Prothrombin Time INR 0.9 Bedside Glucose 93 mg/dl White Blood Count 6.27 K/uL Red Blood Count 4.28 M/uL Hemoglobin 13.2 g/dL Hematocrit 37.7 % Mean Corpuscular Volume 88.1 fL Mean Corpuscular Hemoglobin 30.8 pg Mean Corpuscular Hemoglobin Concent 35.0 g/dl Platelet Count 239 K/uL Mean Platelet Volume 9.1 fL Neutrophils (%) (Auto) 62.9 % Lymphocytes (%) (Auto) 27.9 % Monocytes (%) (Auto) 7.8 % Eosinophils (%) (Auto) 0.8 % Basophils (%) (Auto) 0.3 % Neutrophils # (Auto) 3.94 K/uL Lymphocytes # (Auto) 1.75 K/uL Monocytes # (Auto) 0.49 K/uL Eosinophils # (Auto) 0.05 K/uL Basophils # (Auto) 0.02 K/uL RDW Standard Deviation 38.5 fL RDW Coefficient of Variation 12.0 % Immature Granulocyte % (Auto) 0.3 % Immature Granulocyte # (Auto) 0.02 K/uL Prothrombin Time 10.0 SECONDS Prothromb Time International Ratio 0.9 Activated Partial Thromboplast Time 25.0 SECONDS Partial Thromboplastin Ratio 1.0 Sodium Level 140 mmol/L Potassium Level 3.9 mmol/L Chloride Level 104 mmol/L Carbon Dioxide Level 30 mmol/L Anion Gap 6.0 mmol/L Blood Urea Nitrogen 15 mg/dl Creatinine 0.65 mg/dl Est Creatinine Clear Calc Drug Dose 72.3 ml/min Estimated GFR () 102.8 Estimated GFR (Non- 88.7 BUN/Creatinine Ratio 23.1 Random Glucose 93 mg/dl Estimated Average Glucose 108 mg/dl Hemoglobin A1c 5.4 % Calcium Level 9.2 mg/dl Total Creatine Kinase 79 U/L Creatine Kinase MB 1.1 ng/ml 1.5 ng/ml Creatine Kinase MB Ratio 1.4 Troponin I < 0.015 ng/ml < 0.015 ng/ml Hepatitis C Antibody Screen NEG Test 03/31/17 04:00 03/31/17 04:44 03/31/17 08:40 Urine Opiates Screen NEG Urine Methadone, Qualitative NEG Urine Barbiturates NEG Urine Phencyclidine (PCP) Level NEG Ur Amphetamine/Methamphetamine NEG MDMA (Ecstasy) Screen POS Urine Benzodiazepines Screen NEG Urine Cocaine Metabolite NEG Urine Marijuana (THC) NEG Creatine Kinase MB Ratio White Blood Count 3.66 K/uL Red Blood Count 4.29 M/uL Hemoglobin 12.8 g/dL Hematocrit 38.1 % Mean Corpuscular Volume 88.8 fL Mean Corpuscular Hemoglobin 29.8 pg Mean Corpuscular Hemoglobin Concent 33.6 g/dl RDW Standard Deviation 39.4 fL RDW Coefficient of Variation 12.3 % Platelet Count 213 K/uL Mean Platelet Volume 9.2 fL Sodium Level 144 mmol/L Potassium Level 3.7 mmol/L Chloride Level 108 mmol/L Carbon Dioxide Level 29 mmol/L Anion Gap 7.0 mmol/L Blood Urea Nitrogen 13 mg/dl Creatinine 0.59 mg/dl Est Creatinine Clear Calc Drug Dose 79.6 ml/min Estimated GFR () 106.1 Estimated GFR (Non- 91.6 BUN/Creatinine Ratio 21.4 Random Glucose 96 mg/dl Estimated Average Glucose 105 mg/dl Hemoglobin A1c 5.3 % Calcium Level 9.1 mg/dl Creatine Kinase MB 1.3 ng/ml Troponin I < 0.015 ng/ml Triglycerides Level 175 mg/dl Cholesterol Level 162 mg/dl HDL Cholesterol 45 mg/dl LDL Cholesterol, Calculated 82 mg/dl VLDL Cholesterol, Calculated 35 mg/dl Cholesterol/HDL Ratio 3.6 Vitamin B12 Level 888 pg/mL Folate > 24.00 ng/mL Thyroid Stimulating Hormone (TSH) 0.116 uIu/ml Assessment & Plan Stroke like symptoms Present with difficulty to find words, slow thought process, left sided weakness and hot feeling stroke alert was called, but no TPA was given because pt did not meet the criteria for TPA CT head was done was negative for any intracranial abnormality Carotid Doppler U/S showed no hemodynamically significant stenosis seen within the carotid arteries. Brain MRA showed no significant stenosis, occlusion, or aneurysm within the [place]. Brain MRI showed no significant change compared to the prior study. No acute intracranial abnormality. Symptoms might be due to Narcotic since she started experiencing those symptoms when oxycodone increased Will decrease the narcotic, follow up with your PCP EKG showed normal sinus rhythm Tele monitor showed no arrhythmia Continue aspirin Neurology on board PT/OT eval Echo The left ventricle is normal in size. * Left ventricular systolic function is normal. * Ejection Fraction = 65-70%. * The right ventricular systolic function is normal. * No significant valvular pathology. Hypothyroidism TSH 0.116 (low) Will decrease to levothyroxine to 175 mcg check TSH in about 6 weeks Follow up with your PCP ?Right lung nodular Cxr showed Question small nodular density within the right midlung zone. Repeat CXR was negative HTN Resume BP med Continue monitor BP Fibromyalgia Back pain had a kyphoplasty done last week in [place] Stitches removed Will decrease the oxycodone to 5mg due to medications side effects (slow thought process, tired, difficulty to find words) Dyslipidemia LDL at goal Continue Zetia Tremors Possible related to anxiety vs High Levothyroxine dose vs narcotic TSH 0.116 (low) will decrease the levothyroxine to 175 mcg daily continue monitor DVT px on heparin subq CODE STATUS FULL CODE DISPOSITION Will discharge home today Follow up with your PCP in [place] Consultants: Neurology Current Inpatient Medications: Current Inpatient Medications Medications (Trade) Dose Ordered Sig/[place] Route Start Time Stop Time Status Last Admin Dose Admin Miscellaneous Information (Pharmacist Discharge Med Rec Consult) 1 ea UD PRN N/A 03/30/17 18:45 04/29/17 18:44 Heparin Sodium (Porcine) (Heparin Sq 5000 Unit/0.5ml) 5,000 unit Q8 SQ 03/30/17 22:00 04/29/17 21:59 03/31/17 05:58 5,000 UNIT Aspirin (Ecotrin Tab) 81 mg HS PO 03/30/17 21:00 04/29/17 20:59 03/30/17 22:33 81 MG Bupropion HCl (Wellbutrin-Xl Tab) 300 mg QAM PO 03/31/17 09:00 04/30/17 08:59 03/31/17 08:37 300 MG Calcium/Vitamin D (Caltrate Plus Tab) 1 tab QAM PO 03/31/17 09:00 04/30/17 08:59 03/31/17 08:39 1 TAB Docusate Sodium (coLACE CAP) 100 mg QAM PRN PO 03/30/17 19:15 04/29/17 19:14 03/31/17 11:14 100 MG Duloxetine HCl (Cymbalta Cap) 60 mg QAM PO 03/31/17 09:00 04/30/17 08:59 03/31/17 08:37 60 MG HCTZ/Lisinopril (Prinzide 10-12.5MG Tab) 1 tab QAM PO 03/31/17 09:00 04/30/17 08:59 03/31/17 08:39 1 TAB Levothyroxine Sodium (Synthroid Tab) 200 mcg DAILYBB PO 03/31/17 06:00 04/30/17 05:59 03/31/17 05:53 200 MCG Montelukast Sodium (Singulair Tab) 10 mg QAM PO 03/31/17 09:00 04/30/17 08:59 03/31/17 08:38 10 MG Oxycodone/ Acetaminophen (Percocet 10-325MG Tab) 1 tab TID PRN PO 03/30/17 19:15 04/13/17 19:14 03/30/17 22:42 1 TAB Ropinirole HCl (Requip Tab) 2 mg BID PO 03/30/17 21:00 04/29/17 20:59 03/31/17 08:39 2 MG Trazodone HCl (Desyrel Tab) 200 mg HS PO 03/30/17 21:00 04/29/17 20:59 03/30/17 22:32 200 MG Vitamin B Complex/ Vit C/Folic Acid (Nephrocaps) 1 cap QAM PO 03/31/17 09:00 04/30/17 08:59 03/31/17 08:38 1 CAP Cholecalciferol (Vitamin D Tab) 1,000 inter.unit QAM PO 03/31/17 09:00 04/30/17 08:59 03/31/17 08:37 1,000 INTER.UNIT Miscellaneous Information (Order Awaiting Action) 1 ea QS N/A 03/31/17 00:00 04/30/17 00:00
[2017-03-31] MEDS ORDERED: LEVO175T PO (14:28)
--- NOTE | 2017-03-31 14:36 | Discharge Instructions ---
Discharge Instructions Date of Service March 31, 2017. Admission Reason for Admission: Stroke-Like Symptoms Discharge Discharge Diagnosis / Problem: Narcotic induced Stroke-like symptoms and Tremors, Hypothyroidism Discharge Goals Goal(s): Decrease discomfort, Improve function, Improve disease control Activity Recommendations Activity Limitations: resume your previous activity (as tolerated) . Instructions / Follow-Up Instructions / Follow-Up Please follow up with your physician in [place] Levothyroxine decrease to 175mcg daily Check TSH in about 6 weeks Cut down the oxycodone to half tablet as needed three times a day for moderate to severe pain Your physician can continue to titrate your pain medication Current Hospital Diet Patient's current hospital diet: AHA Diet (Heart Healthy) Discharge Diet Recommended Diet: AHA Diet (Heart Healthy) Pending Studies Studies pending at discharge: no Laboratory Results Hemoglobin A1c Test 03/31/17 08:40 Range/Units Estimated Average Glucose 105 mg/dl Hemoglobin A1c 5.3 4.5-5.6 % Lipid Panel Test 03/31/17 08:40 Range/Units Triglycerides Level 175 H 0-150 mg/dl Cholesterol Level 162 0-200 mg/dl HDL Cholesterol 45 mg/dl Cholesterol/HDL Ratio 3.6 LDL Cholesterol, Calculated 82 mg/dl Medical Emergencies . Who to Call and When: Medical Emergencies: If at any time you feel your situation is an emergency, please call 911 immediately. . Non-Emergent Contact Non-Emergency issues call your: Primary Care Provider Call Non-Emergent contact if: you have any medication questions . . "Provider Documentation" section prepared by Anitha Lopez. . VTE Core Measure Inpt VTE Proph given/why not?: Unfractionated heparin SQ
[2017-03-31 14:40] VITALS: BP 134/79; PULSE 68; TEMP 36.9; O2SAT 96
--- NOTE | 2017-04-01 23:10 | Discharge Summary ---
Discharge Summary Date of Service April 01, 2017. Discharge Summary Admission Date: March 30, 2017 at 18:59 Discharge Date: March 31, 2017 Discharge Disposition: Home Principal Diagnosis: Narcotic induced Stroke-like symptoms Secondary Diagnoses/Problems: Narcotic induced Stroke-like symptoms Tremors Hypothyroidism Procedures: BILATERAL CAROTID DOPPLER STUDY HISTORY: Memory loss. stroke like symptoms COMPARISON: None. TECHNIQUE: Real-time, grayscale, and color Doppler sonography of the carotid arteries was performed. Imaging reviewed in the transverse and longitudinal planes. All measurements were calculated based on NASCET criteria. FINDINGS: Antegrade flow is seen in the bilateral vertebral arteries. The brachial pressures are hemodynamically similar. The peak systolic velocity within the right ICA is 60 cm/s. The right systolic ratio is 0.7. The peak systolic velocity within the left ICA is 66 cm/s. The left systolic ratio is 0.6. IMPRESSION: No hemodynamically significant stenosis seen within the carotid arteries. Electronically signed by: Ad Dillard M.D. 03/30/2017 8:54 PM CHEST-PA,LAT AND OBLIQUE VIEWS HISTORY: Questionable right lung nodule. Follow-up. COMPARISON: Chest 03/30/2017. FINDINGS: Right midlung zone nodular density is no longer visualized and was likely due to the overlapping pulmonary vessels. The lungs are clear. The heart is normal in size. Cervical and lumbar spinal fusion hardware. No pleural effusions. No pneumothorax. Vertebroplasty seen within the L1 compression fracture. There is also mild compression deformity at T12 which is likely old. IMPRESSION: No acute process. Electronically signed by: Ad Dillard M.D. 03/31/2017 10:33 AM Dictated Date/Time: 03/31/2017 10:31 AM Brain MRA HISTORY: r/o stroke TECHNIQUE: 3-D [id number] MRA of the brain was performed without contrast. COMPARISON STUDY: None. FINDINGS: Visualized intracranial internal carotid arteries, distal vertebral arteries, and basilar artery are widely patent. There is no significant stenosis, occlusion, or aneurysm seen within the bilateral ACAs, MCAs, or magazine publisher. Hypoplastic distal left vertebral artery and right P1 segment. IMPRESSION: No significant stenosis, occlusion, or aneurysm within the [place]. Electronically signed by: Ad Dillard M.D. 03/30/2017 8:40 PM Dictated Date/Time: 03/30/2017 8:38 PM Brain MRI WITH AND WITHOUT CONTRAST HISTORY: Memory loss. Difficulty speaking. Stroke TECHNIQUE: Multiplanar multisequence MRI of the brain was performed both before and after the intravenous administration of contrast. COMPARISON STUDY: Brain MRI 10/08/2014. Head CT 03/30/2017. FINDINGS: There are no areas of restricted diffusion to suggest acute infarction. The midline structures are intact. The paranasal sinuses are clear. The mastoid air cells are clear. The ventricles and sulci are within normal limits for age. There is no mass, hematoma, midline shift. The major vascular flow-voids at the skull base are well maintained. Postcontrast sequences show no areas of abnormal enhancement. Minimal periventricular white matter T2 hyperintensity is nonspecific but suggestive of microvascular ischemic change. This remains unchanged. IMPRESSION: No significant change compared to the prior study. No acute intracranial abnormality. Electronically signed by: Ad Dillard M.D. 03/30/2017 8:37 PM Dictated Date/Time: 03/30/2017 8:31 PM CHEST ONE VIEW PORTABLE HISTORY: Stroke symptoms. COMPARISON: Chest 02/10/2014. FINDINGS: The heart remains borderline enlarged. No focal lung consolidations. Question of a small nodular density within the right midlung zone. No pleural effusions. No pneumothorax. Cervical spinal fusion hardware. IMPRESSION: 1. No acute process within the chest. 2. Question small nodular density within the right midlung zone is likely due to the overlapping pulmonary vessels and ribs. However, dedicated nonemergent PA and lateral views the chest are recommended for confirmation. Electronically signed by: dA Dillard M.D. 03/30/2017 4:33 PM Dictated Date/Time: 03/30/2017 4:32 PM [~ rep ct add3]] CT OF THE HEAD WITHOUT CONTRAST CLINICAL HISTORY: Stroke alert. Left-sided numbness and weakness. COMPARISON STUDY: MRI of the brain October 08, 2014. CT DOSE: 614.27 mGy.cm TECHNIQUE: Helical axial images of the head were obtained without IV contrast. Automated exposure control was utilized for the study. FINDINGS: No acute intracranial hemorrhage, midline shift or mass effect is present. Ventricular system is normal. Basilar cisterns are patent. There are no extra-axial collections. Mild white matter hypodensity suggests small vessel disease. There are no findings to suggest acute dural sinus thrombosis or acute territorial infarct. Visualized portions of the sinuses and mastoid air cells are clear. There are no calvarial abnormalities. IMPRESSION: No acute intracranial findings. Electronically signed by: Daniel Jessica M.D. 03/30/2017 4:23 PM ECHO Interpretation Summary * Name: CANDELARIO BRYAN Study Date: 03/31/2017 07:27 AM BP: 138/76 mmHg * [id number] HR: 61 * : 1945 (M/d/yyyy) Gender: Female Height: 60 in * Age: 72 yrs Ethnicity: CA Weight: 171 lb * Ordering Physician: Anitha Lopez * Performed By: Carolina Montilla * * Reason For Study: STROKE LIKE SYMPTOMS * BSA: 1.7 m2 * -- Conclusions -- * The left ventricle is normal in size. * Left ventricular systolic function is normal. * Ejection Fraction = 65-70%. * The right ventricular systolic function is normal. * No significant valvular pathology. Procedure Details * A complete two-dimensional transthoracic echocardiogram was performed (2D, M- mode, Doppler and color flow Doppler). * A saline contrast injection was performed to assess for cardiac shunting. * The injection was performed through an intravenous line in the right arm. * The attending nurse who injected the saline contrast was TATIANA EDWARD RN. * A total of 20 cc of agitated saline was given. Left Ventricle * The left ventricle is normal in size. * There is normal left ventricular wall thickness. * Ejection Fraction = 65-70%. * Left ventricular systolic function is normal. Right Ventricle * The right ventricle is normal size. * The right ventricular systolic function is normal. Atria * The left atrial size is normal. * Right atrial size is normal. * The interatrial septum is intact with no evidence for an atrial septal defect. Mitral Valve * The mitral valve leaflets appear thickened, but open well. * Significant mitral regurgitation is absent. Tricuspid Valve * The tricuspid valve anatomy is normal. * Significant tricuspid regurgitation is absent. Aortic Valve * The aortic valve is tricuspid. The leaflet thickness if normal. There is no aortic stenosis, and no significant insufficiency. * Aortic stenosis is absent. * Trace aortic regurgitation. Pulmonic Valve * The pulmonic valve is not well visualized. Great Vessels * The aortic root and proximal ascending aorta are normal sized. Pericardium/Pleural * There is no pericardial effusion. Consultations: Neurology Medication Reconciliation Changed Medications: Levothyroxine Sodium (Synthroid) 175 Mcg Tab 1 TAB PO DAILY for 30 Days, #30 TAB 0 Refills (Changed from: Levothyroxine Sodium 200 Mcg Tab 200 Mcg PO QAM 90 Days #90 TAB Ref 3) Continued Medications: Ascorbic Acid (Vitamin C) Unknown Strength Tab Unknown Dose PO QAM Aspirin (Aspirin 81) 81 Mg Tab 81 MG PO HS Bupropion (Wellbutrin-Xl) 300 Mg Tabcr 300 MG PO QAM, TAB Calcium Carbonate-Vitamin D W/ (Caltrate 600 Plus) 1 Tab Tab 1 TAB PO QAM, TAB Cholecalciferol (D 1000) 1,000 Unit Cap 1000 UNITS PO QAM Coenzyme Q10 (Ubidecarenone) (Co Q10) Unknown Strength Tab Unknown Dose PO QAM, TAB Docusate Sodium (Docusate Sodium) 100 Mg Cap 1 CAP PO QAM PRN for Constipation for 30 Days, #30 CAP Duloxetine Hcl (Cymbalta) 60 Mg Cap 60 MG PO QAM, CAP Fish Oil (Mobile-3) 1 Ea Cap 1 CAP PO TID, 0 Refills Garlic (Garlic) 1,000 Mg Cap 1000 MG PO QAM Hctz/Lisinopril (Lisinopril/Hctz 10/12.5 Mg) 1 Ea Tab 1 TAB PO QAM, TAB Hormone Cream Base (Hrt Base) 1 Cre Cre 1 DOSE TOP QAM Milk Thistle (Silybum [place] (Milk Thistle) Unknown Strength Cap Unknown Dose PO QAM Misc Natural Products (Ginkgo Biloba) Unknown Strength Tab Unknown Dose PO QAM Montelukast Sodium (Singulair) 10 Mg Tab 10 MG PO QAM, TAB Ropinirole (Requip) 2 Mg Tab 2 MG PO BID Trazodone Hcl (Trazodone) 100 Mg Tab 200 MG PO HS, TAB Vitamin B Cmplx/Vitc/Folic Ac (Nephrocaps) Cap 1 CAP PO QAM for 90 Days, #90 CAP 3 Refills [Tumeric] () Unknown Strength Unknown Dose PO QAM Discontinued Medications: Oxycodone/Acetaminophen 10MG/325MG (Percocet 10MG/325MG) Tab 1 TAB PO TID PRN for Pain, TAB Admission Information HPI (per Admitting provider): 72 year old female with PMH of dyslipidemia, HTN, Fibromyalgia, thyroid malignancy presents to the Emergency Room with complaints speech difficulty. [place] and came [place]. Pt said that around 3 pm today she suddenly feels hot and pressure around the left side of her jaw. She said that she felt her left sided of her body feels weak. she started to unable to find her words. She said that she was able to comprehend. she did not have any slurred speech. she said that for about a month she has been having tremors all over her extremities, but today the shakiness got worst. Her did not notice any slurring of her speech or facial droop. She denies any vision changes , chest pain, dysuria, unsteady gait, dizziness, fever, or headache. She had a kyphoplasty done last week in [place]. Physical Exam (per Admitting): General Appearance: WD/WN, no apparent distress Head: normocephalic, atraumatic Eyes: normal inspection, PERRL, EOMI ENT: normal ENT inspection, hearing grossly normal Neck: supple, no JVD Respiratory/Chest: lungs clear, normal breath sounds, no respiratory distress, no accessory muscle use Cardiovascular: regular rate, rhythm, no edema, no JVD, no murmur Abdomen/GI: normal bowel sounds, non tender, soft Back: no CVA tenderness, + pertinent finding (2 stitches present from the kyphoplasty) Extremities/Musculoskelatal: no calf tenderness Neurologic/Psych: pearl maker II-XII nml as tested, no motor/sensory deficits, alert , oriented x 3 Skin: normal color, warm/dry, no rash Hospital Course Stroke like symptoms Present with difficulty to find words, slow thought process, left sided weakness and hot feeling stroke alert was called, but no TPA was given because pt did not meet the criteria for TPA CT head was done was negative for any intracranial abnormality Carotid Doppler U/S showed no hemodynamically significant stenosis seen within the carotid arteries. Brain MRA showed no significant stenosis, occlusion, or aneurysm within the [place]. Brain MRI showed no significant change compared to the prior study. No acute intracranial abnormality. Symptoms might be due to Narcotic since she started experiencing those symptoms when oxycodone increased Will decrease the narcotic, follow up with your PCP EKG showed normal sinus rhythm Tele monitor showed no arrhythmia Continue aspirin Neurology on board PT/OT eval Echo The left ventricle is normal in size. * Left ventricular systolic function is normal. * Ejection Fraction = 65-70%. * The right ventricular systolic function is normal. * No significant valvular pathology. Hypothyroidism TSH 0.116 (low) Will decrease to levothyroxine to 175 mcg check TSH in about 6 weeks Follow up with your PCP ?Right lung nodular Cxr showed Question small nodular density within the right midlung zone. Repeat CXR was negative HTN Resume BP med Continue monitor BP Fibromyalgia Back pain had a kyphoplasty done last week in [place] Stitches removed Will decrease the oxycodone to 5mg due to medications side effects (slow thought process, tired, difficulty to find words) Dyslipidemia LDL at goal Continue Zetia Tremors Possible related to anxiety vs High Levothyroxine dose vs narcotic TSH 0.116 (low) will decrease the levothyroxine to 175 mcg daily continue monitor DVT px on heparin subq CODE STATUS FULL CODE DISPOSITION Will discharge home today Follow up with your PCP in [place] Total time spent on discharge = 40 minutes This includes examination of the patient, discharge planning, medication reconciliation, and communication with other providers. Discharge Instructions Discharge Instructions Date of Service March 31, 2017. Admission Reason for Admission: Stroke-Like Symptoms Discharge Discharge Diagnosis / Problem: Narcotic induced Stroke-like symptoms and Tremors, Hypothyroidism Discharge Goals Goal(s): Decrease discomfort, Improve function, Improve disease control Activity Recommendations Activity Limitations: resume your previous activity (as tolerated) . Instructions / Follow-Up Instructions / Follow-Up Please follow up with your physician in [place] Levothyroxine decrease to 175mcg daily Check TSH in about 6 weeks Cut down the oxycodone to half tablet as needed three times a day for moderate to severe pain Your physician can continue to titrate your pain medication Current Hospital Diet Patient's current hospital diet: AHA Diet (Heart Healthy) Discharge Diet Recommended Diet: AHA Diet (Heart Healthy) Pending Studies Studies pending at discharge: no Laboratory Results Hemoglobin A1c Test 03/31/17 08:40 Range/Units Estimated Average Glucose 105 mg/dl Hemoglobin A1c 5.3 4.5-5.6 % Lipid Panel Test 03/31/17 08:40 Range/Units Triglycerides Level 175 H 0-150 mg/dl Cholesterol Level 162 0-200 mg/dl HDL Cholesterol 45 mg/dl Cholesterol/HDL Ratio 3.6 LDL Cholesterol, Calculated 82 mg/dl Medical Emergencies . Who to Call and When: Medical Emergencies: If at any time you feel your situation is an emergency, please call 911 immediately. . Non-Emergent Contact Non-Emergency issues call your: Primary Care Provider Call Non-Emergent contact if: you have any medication questions . . "Provider Documentation" section prepared by Anitha Lopez. . VTE Core Measure Inpt VTE Proph given/why not?: Unfractionated heparin SQ
== END 2017-03-31 15:19 | disposition home or self-care (01) | DRG 93 ==
LOC: ENRESERVDT → ENRESERVTM → C.EDB 15:54 → C.2T 18:59
PROVIDERS: ADMIT Internal Medicine; ATTEND Internal Medicine
DX: R29.818 Other symptoms and signs involving the nervous system (principal); G25.1 Drug-induced tremor; R25.1 Tremor, unspecified; R47.89 Other speech disturbances; R29.898 Other symptoms and signs involving the musculoskeletal system; T40.2X5A Adverse effect of other opioids, initial encounter; T38.1X5A Adverse effect of thyroid hormones and substitutes, initial encounter; R29.700 NIHSS score 0; F41.9 Anxiety disorder, unspecified; R91.1 Solitary pulmonary nodule; M79.7 Fibromyalgia; M54.9 Dorsalgia, unspecified; E03.9 Hypothyroidism, unspecified; I10 Essential (primary) hypertension; E78.5 Hyperlipidemia, unspecified; F32.9 Major depressive disorder, single episode, unspecified; Z51.81 Encounter for therapeutic drug level monitoring; Z79.899 Other long term (current) drug therapy; Z79.82 Long term (current) use of aspirin; Z85.850 Personal history of malignant neoplasm of thyroid; Z98.890 Other specified postprocedural states